=== PATIENT | female | born 1990 | race Caucasian/White ===

== ENCOUNTER 2017-04-16 21:52 | Emergency (ER) | payer OTHER ==
[~2017-04-16] VITALS: Ht 165.1 cm; Wt 55.9 kg
[~2017-04-16 21:52] MED LIST: MACR100C PO; ZOFR4TAB3 SL
[2017-04-16 21:53] VITALS: BP 125/76; PULSE 113; RESP 20; TEMP 97.8; O2SAT 97
[2017-04-16] MEDS ORDERED: SODIUM CHLOR 0.9% 1000 ML INJ 1,000 ML IV SCH (22:07)
--- NOTE | 2017-04-16 22:07 | PD ---
HPI Chief Complaint: GI Complaint Time Seen by Provider: 22:03 Travel History International Travel<30 days: No Contact w/Intl Traveler<30days: No Traveled to known affect area: No History of Present Illness HPI C/O N/V ONSET THIS MORNING, MODERATE IN SEVERITY AND HAS HAD AT LEAST 10 EPISODES THROUGHOUT DAY....., DENIES SICK CONTACTS , DENIES ANY ABDOMINAL PAIN OR DIARRHEA. ALSO DENIES ASSOC FACTORS SUCH FEVER/HERRERA/RASH/CP/ABDPAIN/ BACKPAIN. CURRENTLY NOT AWARE OF ANY ALLEVIATING FACTORS BUT AGGRAVATED BY EATING OR DRINKING. ALL:DENIES PMHX DENIES PSHX DENIES DENIES TOBACCO/ETOH LMP JUST FINISHED 2 DAYS AGO PFSH Past Medical History Diminished Hearing: No ?: Unknown LMP: LAST WEEK Social History Alcohol Use: No Tobacco Use: No Substance Use: No Allergies-Medications (Allergen,Severity, Reaction): Coded Allergies: No Known Allergies (Verified Adverse Reaction, Unknown, 04/16/17) Reported Meds & Prescriptions Reported Meds & Active Scripts Active Zofran Odt (Ondansetron Odt) 4 Mg Tab 4 Mg SL Q6HR PRN Review of Systems General / Constitutional: No: Fever Eyes: No: Visual changes HENT: No: Headaches Cardiovascular: No: Chest Pain or Discomfort Respiratory: No: Shortness of Breath Gastrointestinal: Positive: Nausea, Vomiting Genitourinary: No: Dysuria Musculoskeletal: No: Pain Skin: No Rash Neurologic: No: Weakness Psychiatric: No: Depression Endocrine: No: Polydipsia Hematologic/Lymphatic: No: Easy Bruising Physical Exam Narrative GENERAL: SKIN: Warm and dry. HEAD: Atraumatic. Normocephalic. EYES: Pupils equal and round. No scleral icterus. No injection or drainage. ENT: No nasal bleeding or discharge. Mucous membranes pink and moist. NECK: Trachea midline. No JVD. CARDIOVASCULAR: Regular rate and rhythm. RESPIRATORY: No accessory muscle use. Clear to auscultation. Breath sounds equal bilaterally. GASTROINTESTINAL: Abdomen soft, non-tender, nondistended. MUSCULOSKELETAL: Extremities without clubbing, cyanosis, or edema. No obvious deformities. NEUROLOGICAL: Awake and alert. No obvious cranial nerve deficits. Motor grossly within normal limits. Five out of 5 muscle strength in the arms and legs. Normal speech. PSYCHIATRIC: Appropriate mood and affect; insight and judgment normal. Data Data Last Documented VS Vital Signs Date Time Temp Pulse Resp B/P (MAP) Pulse Ox O2 Delivery O2 Flow Rate FiO2 04/16/17 21:53 97.8 113 20 125/76 (92) 97 Orders Orders Complete Blood Count With Diff (04/16/17 22:07) Comprehensive Metabolic Panel (04/16/17 22:07) Lipase (04/16/17 22:07) Urinalysis - C+S If Indicated (04/16/17 22:07) Iv Access Insert/Monitor (04/16/17 22:07) Ecg Monitoring (04/16/17 22:07) NPO (04/16/17 22:07) Ondansetron Inj (Zofran Inj) (04/16/17 22:15) Sodium Chlor 0.9% 1000 Ml Inj (Ns 1000 M (04/16/17 22:07) Ed Urine Pregnancytest Poc (04/16/17 22:07) Urine Culture (04/16/17 23:06) Labs Laboratory Tests Test 04/16/17 22:23 04/16/17 23:06 White Blood Count 11.0 TH/MM3 Red Blood Count 4.59 MIL/MM3 Hemoglobin 13.0 GM/DL Hematocrit 41.1 % Mean Corpuscular Volume 89.6 FL Mean Corpuscular Hemoglobin 28.4 PG Mean Corpuscular Hemoglobin Concent 31.7 % Red Cell Distribution Width 12.7 % Platelet Count 312 TH/MM3 Mean Platelet Volume 7.9 FL Neutrophils (%) (Auto) 84.3 % Lymphocytes (%) (Auto) 11.9 % Monocytes (%) (Auto) 3.3 % Eosinophils (%) (Auto) 0.3 % Basophils (%) (Auto) 0.2 % Neutrophils # (Auto) 9.3 TH/MM3 Lymphocytes # (Auto) 1.3 TH/MM3 Monocytes # (Auto) 0.4 TH/MM3 Eosinophils # (Auto) 0.0 TH/MM3 Basophils # (Auto) 0.0 TH/MM3 CBC Comment DIFF FINAL Differential Comment Blood Urea Nitrogen 15 MG/DL Creatinine 0.76 MG/DL Random Glucose 103 MG/DL Total Protein 7.9 GM/DL Albumin 4.2 GM/DL Calcium Level 8.7 MG/DL Alkaline Phosphatase 51 U/L Aspartate Amino Transf (AST/SGOT) 11 U/L Alanine Aminotransferase (ALT/SGPT) 17 U/L Total Bilirubin 0.6 MG/DL Sodium Level 138 MEQ/L Potassium Level 3.2 MEQ/L Chloride Level 103 MEQ/L Carbon Dioxide Level 26.7 MEQ/L Anion Gap 8 MEQ/L Estimat Glomerular Filtration Rate 91 ML/MIN Lipase 226 U/L Urine Color YELLOW Urine Turbidity SLIGHT Urine pH 5.5 Urine Specific [place] 1.027 Urine Protein NEG mg/dL Urine Glucose (UA) NEG mg/dL Urine Ketones NEG mg/dL Urine Occult Blood SMALL Urine Nitrite NEG Urine Bilirubin NEG Urine Leukocyte Esterase TRACE Urine RBC 0-3 /hpf Urine WBC 9-14 /hpf Urine Squamous Epithelial Cells > 8 /hpf Urine Amorphous Sediment SMALL Urine Bacteria FEW /hpf Urine Mucus MANY /lpf Microscopic Urinalysis Comment CULTURE INDICATED MDM Medical Decision Making Medical Screen Exam Complete: Yes Emergency Medical Condition: Yes Medical Record Reviewed: Yes Differential Diagnosis VIRAL V BACTERIAL GASTRITIS V VIRAL SYNDROM V STOMACH FLU Narrative Course electrolytes are wnl, negative , lft's nl, kidney function normal and lipase normal as well. patient's cbc did not show any leukocytosis. ua c/w uti Diagnosis Primary Impression: Stomach flu Additional Impression: UTI Patient Instructions: Full Liquid Diet (DC), General Instructions, Urinary Tract Infection in Women (ED), Viral Syndrome (ED) Scripts Nitrofurantoin Monohydrate Macrocrystals (Macrobid) 100 Mg Capsule 100 MG PO BID for Infection for 7 Days, #14 CAP 0 Refills Prov: Jama Barba MD 04/16/17 Ondansetron Odt (Zofran Odt) 4 Mg Tab 4 MG SL Q6HR Y for Nausea/Vomiting, #20 TAB 0 Refills Prov: Jama Barba MD 04/16/17 Disposition: 01 DISCHARGE HOME Condition: Stable Jama Barba MD Apr 16, 2017 22:07
[2017-04-16] MEDS ORDERED: ONDANSETRON HCL 4 MG/2 ML VIAL IVP ONE (22:15)
[2017-04-16 22:32] LABS: AUTOMATED NEUTROPHIL # 9.3 TH/MM3 (1.8-7.7); BASOPHIL % 0.2 % (0.0-2.0); EOSINOPHIL % 0.3 % (0.0-4.0); HEMATOCRIT 41.1 % (35.0-46.0); LYMPH % 11.9 % (9.0-44.0); LYMPHOCYTE # 1.3 TH/MM3 (1.0-4.8); MEAN CELL VOLUME 89.6 FL (80.0-100.0); MEAN CORPUSCULAR HEMOGLOBIN 28.4 PG (27.0-34.0); MEAN CORPUSCULAR HGB CONC 31.7 % (32.0-36.0); MEAN PLATELET VOLUME 7.9 FL (7.0-11.0); MONO % 3.3 % (0.0-8.0); MONOCYTE # 0.4 TH/MM3 (0-0.9); NEUT % 84.3 % (16.0-70.0); PLATELET COUNT 312 TH/MM3 (150-450); RED BLOOD COUNT 4.59 MIL/MM3 (4.00-5.30); RED CELL DISTRIBUTION WIDTH 12.7 % (11.6-17.2)
[2017-04-16 22:43] LABS: CHLORIDE 103 MEQ/L (98-107); SODIUM (NA) 138 MEQ/L (136-145)
[2017-04-16 22:46] LABS: CALCIUM 8.7 MG/DL (8.5-10.1)
[2017-04-16 22:47] LABS: ALBUMIN 4.2 GM/DL (3.4-5.0); BICARBONATE 26.7 MEQ/L (21.0-32.0); BLOOD UREA NITROGEN 15 MG/DL (7-18); GLUCOSE,RANDOM 103 MG/DL (74-106); LIPASE 226 U/L (73-393)
[2017-04-16 22:50] LABS: ALT (GPT) 17 U/L (10-53); AST (GOT) 11 U/L (15-37); CREATININE 0.76 MG/DL (0.50-1.00); GLOMERULAR FILTRATION RATE 91 ML/MIN (>89)
[2017-04-16 22:52] LABS: TOTAL BILIRUBIN ADULT 0.6 MG/DL (0.2-1.0); TOTAL PROTEIN 7.9 GM/DL (6.4-8.2)
[2017-04-16 22:53] LABS: ALKALINE PHOSPHATASE 51 U/L (45-117)
[2017-04-16 23:14] LABS: BILIRUBIN, URINE NEG (NEG); BLOOD, URINE SMALL (NEG); GLUCOSE,URINE NEG (NEG); KETONE, URINE NEG (NEG); NITRITE,URINE NEG (NEG); PH, URINE 5.5 (5.0-8.5); URINE LEUKOCYTE ESTERASE TRACE (NEG)
[2017-04-16] MEDS ORDERED: ZOFR4TAB3 SL (23:23)
[2017-04-16 23:31] LABS: URINE COLOR YELLOW (YELLW/STRAW)
[2017-04-16 23:32] LABS: MUCUS URINE MANY /lpf (OCC); SQUAMOUS EPITHELIAL CELL URINE > 8 /hpf (0-5)
[2017-04-16 23:33] LABS: AMORPHOUS SEDIMENT, URINE SMALL; BACTERIA, URINE FEW /hpf; RBC, URINE 0-3 /hpf (0-3)
[2017-04-16] MEDS ORDERED: MACR100C2 PO (23:35)
[2017-04-16 23:42] VITALS: BP 130/76
[2017-04-16] MEDS ORDERED: NITROFURANTOIN MONOHYD MACROCR 100 MG CAP PO ONE (23:45)
[2017-04-17] MEDS ORDERED: ONDANSETRON ODT 4 MG TAB PO ONE
== END 2017-04-16 23:56 | disposition home or self-care (01) ==
LOC: PHED 21:52
DX: A08.4 Viral intestinal infection, unspecified (principal); N39.0 Urinary tract infection, site not specified; B96.89 Other specified bacterial agents as the cause of diseases classified elsewhere
CPT/HCPCS: 80053; 81001; 83690; 84703; 85025; 87086; 96361; 96374; 99284; J2405; J7030